=== PATIENT | male | born 1960 | race Caucasian/White ===

== ENCOUNTER 2018-02-20 01:07 | Inpatient (IN) | payer OTHER ==
[~2018-02-20] VITALS: Ht 179.1 cm; Wt 98.8 kg
[~2018-02-20 01:07] MED LIST: AMOX875T PO
--- NOTE | 2018-02-20 01:21 | EMERGENCY ROOM VISIT NOTE ---
History Report prepared by Cathleen: Jose Giron Under the Supervision of: Dr. Misti Craig D.O. First contact with patient: 01:10 Stated Complaint: HIP PAIN History of Present Illness The patient is a 57 year old male who presents to the Emergency Room with complaints of worsening left hip pain beginning 11 hours ago. The patient states he was riding his furnace combustion analyst this afternoon when he rolled it. He reports he was on a hill and started to slide down it. The patient notes he turned the blades off, pushed in the clutch and the break, and then he pressed the break again. He states he rolled the tractor a few times and then landed on his left shoulder. The patient reports he was able to get up, flip the tractor over, and ambulate the 90 yards to the house. He notes he sat down and had a hard time getting up. The patient states he now has left hip pain, left shoulder tenderness, and difficulty ambulating. He also notes movement increases his discomfort. He reports he had mild trouble getting into the ambulance and had to use the stair chair. The patient notes he was able to urinate afterwards. He denies LOC, nausea, right hip pain, back pain, abdominal pain, chest pain, and trouble breathing. The patient notes a history of HTN and DM. He states he should take an aspirin, but he does not. Source of History: patient Onset: 11 hours ago Position: other (left hip) Timing: worsening Modifying Factors (Worsening): movement Associated Symptoms: No LOC, No chest pain, No SOB, No nausea, No back pain Note: Associated symptoms: left shoulder pain, difficulty ambulating Denies: trouble breathing, right hip pain Review of Systems See HPI for pertinent positives & negatives. A total of 10 systems reviewed and were otherwise negative. Past Medical & Surgical Medical Problems: (1) Diabetes (2) HTN (hypertension) Family History Patient reports no known family medical history. Social History Marital Status: Housing Status: lives with family Occupation Status: employed Current/Historical Medications Scheduled Amoxicillin & Pot Clavulanate (Augmentin 875-125 mg), 1 TAB PO Q12 Atenolol (Tenormin), 50 MG PO DAILY Atorvastatin (Lipitor), 10 MG PO DAILY Glimepiride (Glimepiride), 1 TAB PO DAILY Lisinopril (Zestril), 40 MG PO DAILY Metformin Hcl (Glucophage), 1,000 MG PO BID Allergies Coded Allergies: No Known Allergies (Unverified , 02/20/18) Physical Exam Vital Signs Date Time Temp Pulse Resp B/P (MAP) Pulse Ox O2 Delivery O2 Flow Rate FiO2 02/20/18 06:37 84 18 135/80 96 Room Air 02/20/18 05:07 95 22 95 Room Air 02/20/18 05:00 145/87 02/20/18 04:07 99 29 93 02/20/18 04:00 145/82 02/20/18 03:07 99 27 93 02/20/18 03:00 152/80 02/20/18 02:43 161/80 02/20/18 02:07 98 25 92 02/20/18 01:32 70 18 123/57 95 Room Air 02/20/18 01:14 108 02/20/18 01:09 184/94 Physical Exam HEENT: Head - normocephalic and atraumatic. Pupils are equal, round, and reactive to light. Extraocular eye muscles are intact and sclera are anicteric. Ears - bilaterally patent canals with no evidence of hemotympanum. Nose - moist nasal mucosa without evidence of trauma or discharge. Mouth - moist buccal mucosa with no trauma to the teeth or signs of malocclusion. Neck: The neck is supple and there is no pain to palpation over the posterior cervical spine and no obvious step-offs or deformities. There is no JVD or tracheal deviation. Chest: There are no signs of deformities, contusions or abrasions to the chest wall. There is no obvious crepitus or paradoxical chest rise. Heart: Regular, rate, and rhythm. There is a normal S1 and S2 with no murmurs, clicks, or gallops appreciated. Lungs: Clear to auscultation bilaterally with no wheezes, rales, or rhonchi. Abdomen: Soft, completely nontender, nondistended, with good bowel sounds. There is no sign of trauma such as contusions, abrasions or penetrations. There are no palpable pulsatile masses or hepatosplenomegaly. There is no guarding, rigidity, or rebound noted. Pelvis: There is pain with movement of the left hemipelvis and pain to palpation of the left hip. Extremities: There is a LLE large hematoma to the left mid-calf in the tibia/ fibula area. There are easily palpable peripheral pulses. Neuro: The patient is awake and alert and easily able to follow commands. Muscle strength is 5 out of 5 in all 4 extremities. Otherwise, neuro exam is unremarkable. Back: The entire thoracic, lumbar, and sacral spine were palpated. There are no obvious step-offs or deformities noted. There are no obvious signs of trauma such as contusions abrasions penetrations noted to the back. Medical Decision & Procedures ER Provider Diagnostic Interpretation: Radiology results as stated below per my review: LEFT TIB/FIB X-RAY: No obvious fracture identified. Radiology results as stated below per my review and the radiologist's interpretation: CT ABDOMEN & PELVIS With Contrast: Cholelithiasis without cholecystitis. No biliary dilatation. Nonenhancing cysts in both kidneys are benign. Normal appendix. No bowel wall thickening or obstruction. No acute fracture or subluxation of the hip and pelvic bones. Radiologist: Karyn Radford MD Study ready at 02:49 and initial results transmitted at 03:19 Laboratory Results 02/20/18 01:30 02/20/18 01:30 Test 02/20/18 01:30 02/20/18 03:27 Red Blood Count 4.22 M/uL (4.7-6.1) Mean Corpuscular Volume 94.3 fL (80-100) Mean Corpuscular Hemoglobin 32.2 pg (25-34) Mean Corpuscular Hemoglobin Concent 34.2 g/dl (32-36) RDW Standard Deviation 41.2 fL (36.4-46.3) RDW Coefficient of Variation 12.2 % (11.5-14.5) Mean Platelet Volume 10.9 fL (7.4-10.4) Prothrombin Time 10.7 SECONDS (9.0-12.0) Prothromb Time International Ratio 1.0 (0.9-1.1) Anion Gap 11.0 mmol/L (3-11) Est Creatinine Clear Calc Drug Dose 97.2 ml/min Estimated GFR () 97.1 Estimated GFR (Non- 83.8 BUN/Creatinine Ratio 16.4 (10-20) Calcium Level 8.7 mg/dl (8.5-10.1) Chemistry Specimen Hemolysis Hepatitis C Antibody Screen NEG (NEG) Urine Color YELLOW Urine Appearance CLEAR (CLEAR) Urine pH 5.0 (4.5-7.5) Urine Specific [place] 1.035 (1.000-1.030) Urine Protein NEG (NEG) Urine Glucose (UA) 3+ (NEG) Urine Ketones 1+ (NEG) Urine Occult Blood NEG (NEG) Urine Nitrite NEG (NEG) Urine Bilirubin NEG (NEG) Urine Urobilinogen NEG (NEG) Urine Leukocyte Esterase NEG (NEG) Laboratory results per my review. Medications Administered Medications (Trade) Dose Ordered Sig/[place] Route Start Time Stop Time Status Last Admin Dose Admin Oxycodone/ Acetaminophen (Percocet 5-325mg Tab) 2 tab NOW ONCE PO 02/20/18 05:00 02/20/18 05:01 DC 02/20/18 05:02 2 TAB Ketorolac Tromethamine (Toradol Inj) 30 mg NOW STAT IV 02/20/18 05:31 02/20/18 05:32 DC 02/20/18 05:39 30 MG Procedure Medications Ordered: Oxycodone. IV Toradol ED Course 0112: The patient was evaluated in room B01. A complete history and trauma physical examination were performed. Nursing notes and previous electronic medical records were reviewed. IV lock was established and labs were drawn as above. 0117: The patient was moved to room B08. He declined wanting anything for pain. 0143: The patient is going to CT and x-ray. 0450: I checked on the patient. I reviewed the results of the x-ray and CT scan with the patient and his who is now at the bedside he is still having a lot of pain. We will order pain meds and ambulatory trial. 0500: Ordered Oxycodone 2 tablets PO. 0526: The patient did not perform well on ambulatory trial. He did not walk well due to left hip pain. I will order Toradol. 0612: We attempted ambulation again with a walker and were unsuccessful. The patient has exquisite discomfort with flexion of his left hip. The patient cannot go home. I will page for the [facility] Hospitalist. 0651: I [facility] the [facility] will evaluate for further treatment. Medical Decision The patient is a 57 year old male who presents to the Emergency Department with left leg pain. Differential diagnosis includes hip fracture, tib/fib fracture, and pelvic fracture. This is a 57-year-old male patient who rolled his riding lawnmower over backwards earlier today. His vital signs have remained stable throughout the day but he presents the emergency department tonight with severe left hip pain and difficulty walking. CT scan of the abdomen/pelvis revealed no evidence of an acute pelvic fracture or left hip fracture. We did an x-ray of the left tib- fib region because of significant ecchymosis and edema. There is no fracture noted there either. However, the patient has severe pain in the left hip and left hemipelvis when he attempts to ambulate or move. Despite having multiple doses of analgesia, the patient's pain persisted. I discussed the case with the [facility] and they will evaluate him for further management of his intractable pain. Head Trauma GCS Score: 15 Medication Reconcilliation Current Medication List: was personally reviewed by me Blood Pressure Screening Patient's blood pressure: Normal blood pressure Blood pressure disposition: Did not require urgent referral Consults Time Called: 06 Consulting Physician: Dr. Cyn Valle. Returned Call: [phone] I discussed the case with Dr. Cyn Valle. He will evaluate for further treatment. Impression Primary Impression: Accident caused by farm tractor Additional Impression: Left hip pain Scribe Attestation The scribe's documentation has been prepared under my direction and personally reviewed by me in its entirety. I confirm that the note above accurately reflects all work, treatment, procedures, and medical decision making performed by me. Departure Information Dispostion Being Evaluated By Hospitalist Problem Qualifiers Primary Impression: Accident caused by farm tractor Encounter type: initial encounter Qualified Codes: W30.9XXA - Contact with unspecified agricultural machinery, initial encounter
[2018-02-20 01:39] LABS: HEMATOCRIT 39.8 % (42-52); HEMOGLOBIN 13.6 g/dL (14.0-18.0); MEAN CELL VOLUME 94.3 fL (80-100); MEAN CORPUSCULAR HEMOGLOBIN 32.2 pg (25-34); MEAN CORPUSCULAR HGB CONC 34.2 g/dl (32-36); MEAN PLATELET VOLUME 10.9 fL (7.4-10.4); PLATELET COUNT 252 K/uL (130-400); RED CELL DISTRIBUTION WIDTH CV 12.2 % (11.5-14.5); RED CELL DISTRIBUTION WIDTH SD 41.2 fL (36.4-46.3); WHITE BLOOD COUNT 16.72 K/uL (4.8-10.8)
[2018-02-20] MEDS ORDERED: OPTIRAY 320 IV PRN (01:45)
[2018-02-20 02:00] LABS: CALCIUM 8.7 mg/dl (8.5-10.1); POTASSIUM 4.1 mmol/L (3.5-5.1)
[2018-02-20] MEDS ORDERED: GLIM2TAB2 PO (02:55)
[2018-02-20] MEDS ORDERED: ATEN50TA8 PO (02:55)
[2018-02-20] MEDS ORDERED: LISI40TA PO (02:56)
[2018-02-20] MEDS ORDERED: ATOR10TA82 PO (02:56)
[2018-02-20] MEDS ORDERED: METF1000 PO (02:56)
[2018-02-20] MEDS ORDERED: OXYCODONE/ACETAMINOPHEN 5-325 TAB PO ONE (05:00)
[2018-02-20] MEDS ORDERED: KETOROLAC TROMETHAMINE 30 MG/ML VIAL IV STA (05:31)
--- NOTE | 2018-02-20 06:28 | DIAGNOSTIC IMAGING REPORT ---
L TIBIA/FIBULA 2 VIEWS ROUTINE HISTORY: 57 years-old Male eval for fx. Acute left lower leg pain and swelling with bruising COMPARISON: None available TECHNIQUE: 2 views of the left tibia and fibula FINDINGS: Mild degenerative changes about the knee and tibiotalar joint. Spurring about the tibial tuberosity. Fracture or dislocation. Moderate soft tissue swelling about the lower leg including within the pretibial tissues. No opaque foreign body. IMPRESSION: Moderate soft tissue swelling without acute fracture, dislocation or opaque foreign body. The above report was generated using voice recognition software. It may contain grammatical, syntax or spelling errors. Electronically signed by: Danyel Gilmore M.D. 02/20/2018 6:26 AM Dictated Date/Time: 02/20/2018 6:24 AM
--- NOTE | 2018-02-20 06:41 | DIAGNOSTIC IMAGING REPORT ---
ABDOMEN AND PELVIS CT WITH IV CONTRAST CT DOSE: 750.15 mGy.cm HISTORY: Acute pelvic and left hip pain status post trauma eval for pelvic fx or left hip fx TECHNIQUE: Multiaxial CT images of the abdomen and pelvis were performed following the use of intravenous contrast. A dose lowering technique was utilized adhering to the principles of ALARA. COMPARISON STUDY: None. FINDINGS: Mild subsegmental bibasilar atelectasis. No pneumatosis or pneumoperitoneum. Imaged inferior cardiac chambers are unremarkable with coronary arterial calcifications partially imaged. Cholelithiasis without CT evidence of acute cholecystitis. No choledocholithiasis or intrahepatic biliary ductal dilation identified. Spleen is enlarged, 15.2 cm. Patent portal vein. Pancreas and adrenal glands are unremarkable. There are a few hypodense lesions about the bilateral kidneys measuring up to 1.7 cm within the superior pole left kidney compatible with renal cysts. No renal calculi or obstructive uropathy. Moderate bladder dilation. Phleboliths about the pelvis. Moderate calcification of the aorta without aneurysm. The IVC appears unremarkable. There are no pathologically enlarged lymph nodes identified. No bowel obstruction or focal bowel wall thickening. Small duodenal diverticulum. Mild colonic diverticulosis without acute diverticulitis. Terminal ileum and appendix appear normal. No ascites or mesenteric inflammatory changes. Small fat filled periumbilical hernia, diastases 1.3 cm. The soft tissues are unremarkable. Bones appear to be intact. Multilevel spondylitic spurring of the spine. Indeterminate round 5 mm lucency about the left pedicle of L3 without definite aggressive features identified. No acute pelvic fracture identified. The imaged left hip appears normal and is intact. IMPRESSION: 1. No acute intra-abdominal or intrapelvic abnormality identified. 2. No acute fracture. 3. Colonic diverticulosis without diverticulitis. 4. Cholelithiasis without CT evidence of acute cholecystitis. 5. Mild splenomegaly. Electronically signed by: Danyel Gilmore M.D. 02/20/2018 6:40 AM Dictated Date/Time: 02/20/2018 6:30 AM
[2018-02-20] MEDS ORDERED: ACETAMINOPHEN 325 MG TAB PO PRN (07:30)
[2018-02-20] MEDS ORDERED: MAGNESIUM HYDROXIDE SUSP 30 ML UDC PO PRN (07:30)
[2018-02-20] MEDS ORDERED: ONDANSETRON INJ 2 MG/ML 2 ML VIAL IV PRN (07:30)
[2018-02-20] MEDS ORDERED: POLYETHYLENE (MIRALAX) 17 GM PACK PO PRN (07:30)
[2018-02-20] MEDS ORDERED: ALUMINUM/MAGNESIUM/SIMETH (MAALOX MAX) 30 ML UDC PO PRN (07:30)
--- NOTE | 2018-02-20 07:40 | History and Physical ---
History & Physical Date & Time of Service: Feb 20, 2018 at 07:40 Chief Complaint: Hip Pain Primary Care Physician: No Doctor, Assigned History of Present Illness Source: patient This is a 57-year-old male with past medical history of hypertension hyperlipidemia,Type 2 DM Presented to the ER-after traumatic injury to his left leg as riding economic historian fell on him Patient was mowing his backyard with a riding lawnmower, as the mower on top of hill , started to slide back , pt turned off the blades , pushed on brake , the economic historian tripped and fell on top of him pt did not lost consciousness was injured mostly on left side managed to lift the economic historian up , walked back 90 -100 ft to home started to have severe pain and swelling on left lower leg with significant bruise applied ice did not had any fever or chills had left shoulder and left abdominal pain , which got better could not bear wt on left lower leg came to ER after several hrs as pain became unbearable Patient denies of dizziness spell lightheadedness, chest pain or discomfort prior or after the fall In the ER CT of lower extremity shows hematoma on left lower extremity, no fracture Past Medical/Surgical History Medical Problems: (1) Diabetes (2) HTN (hypertension) Family History Patient reports no known family medical history. Social History Smoking Status: Never Smoker Marital Status: Occupational Status: employed Allergies Coded Allergies: No Known Allergies (Unverified , 02/20/18) Home Medications Scheduled Amoxicillin & Pot Clavulanate (Augmentin 875-125 mg), 1 TAB PO Q12 Atenolol (Tenormin), 50 MG PO DAILY Atorvastatin (Lipitor), 10 MG PO DAILY Glimepiride (Glimepiride), 1 TAB PO DAILY Lisinopril (Zestril), 40 MG PO DAILY Metformin Hcl (Glucophage), 1,000 MG PO BID Scheduled PRN Oxycodone/Acetaminophen 5MG/325MG (Percocet 5MG/325MG), 1 TAB PO Q6 PRN for Pain Review of Systems Constitutional: No fever, No chills, No sweats, No weight loss, No weakness, No fatigue, No problem reported Eyes: No worsening of vision, No eye pain, No redness, No discharge, No diplopia, No problem reported ENT: No hearing loss, No unusual epistaxis, No nasal symptoms, No sore throat, No tinnitus, No dental problems, No trouble swallowing, No problem reported Respiratory: No cough, No sputum, No wheezing, No shortness of breath, No dyspnea on exertion, No dyspnea at rest, No hemoptysis, No problem reported Cardiovascular: No chest pain, No orthopnea, No PND, No edema, No claudication , No palpitations, No problem reported Musculoskeletal: + problem reported (Left lower extremity swelling, ecchymosis , + tenderness) Neurologic: No memory loss, No paralysis, No weakness, No numbness/tingling, No vertigo, No balance problems, No problem reported Endocrine: No fatigue, No excessive thirst, No excessive urination, No problem reported Physical Exam Vital Signs Date Time Temp Pulse Resp B/P (MAP) Pulse Ox O2 Delivery O2 Flow Rate FiO2 02/20/18 06:37 84 18 135/80 96 Room Air 02/20/18 05:07 95 22 95 Room Air 02/20/18 05:00 145/87 02/20/18 04:07 99 29 93 02/20/18 04:00 145/82 02/20/18 03:07 99 27 93 02/20/18 03:00 152/80 02/20/18 02:43 161/80 02/20/18 02:07 98 25 92 02/20/18 01:32 70 18 123/57 95 Room Air 02/20/18 01:14 108 02/20/18 01:09 184/94 General Appearance: no apparent distress Head: normocephalic, atraumatic Eyes: normal inspection, PERRL, EOMI, sclerae normal ENT: hearing grossly normal Neck: supple, no adenopathy, thyroid normal, no JVD Respiratory/Chest: chest non-tender, lungs clear, normal breath sounds, no respiratory distress, no accessory muscle use Cardiovascular: regular rate, rhythm, no edema Abdomen/GI: normal bowel sounds, non tender, soft Extremities/Musculoskelatal: + pertinent finding (left lower ext + hematoma , eccymosis , swelling, + tenderness, no skin breakdown ) Neurologic/Psych: alert, normal mood/affect, normal reflexes Lymphatic: no adenopathy Diagnostics Laboratory Results Results Past 24 Hours Test 02/20/18 01:30 02/20/18 03:27 02/20/18 07:28 Range/Units White Blood Count 16.72 4.8-10.8 K/uL Red Blood Count 4.22 4.7-6.1 M/uL Hemoglobin 13.6 14.0-18.0 g/dL Hematocrit 39.8 42-52 % Mean Corpuscular Volume 94.3 80-100 fL Mean Corpuscular Hemoglobin 32.2 25-34 pg Mean Corpuscular Hemoglobin Concent 34.2 32-36 g/dl RDW Standard Deviation 41.2 36.4-46.3 fL RDW Coefficient of Variation 12.2 11.5-14.5 % Platelet Count 252 130-400 K/uL Mean Platelet Volume 10.9 7.4-10.4 fL Sodium Level 134 136-145 mmol/L Potassium Level 4.1 3.5-5.1 mmol/L Chloride Level 98 98-107 mmol/L Carbon Dioxide Level 25 21-32 mmol/L Anion Gap 11.0 3-11 mmol/L Blood Urea Nitrogen 16 7-18 mg/dl Creatinine 1.00 0.60-1.40 mg/dl Est Creatinine Clear Calc Drug Dose 97.2 ml/min Estimated GFR () 97.1 Estimated GFR (Non- 83.8 BUN/Creatinine Ratio 16.4 10-20 Random Glucose 234 70-99 mg/dl Calcium Level 8.7 8.5-10.1 mg/dl Chemistry Specimen Hemolysis Urine Color YELLOW Urine Appearance CLEAR CLEAR Urine pH 5.0 4.5-7.5 Urine Specific [place] 1.035 1.000-1.030 Urine Protein NEG NEG Urine Glucose (UA) 3+ NEG Urine Ketones 1+ NEG Urine Occult Blood NEG NEG Urine Nitrite NEG NEG Urine Bilirubin NEG NEG Urine Urobilinogen NEG NEG Urine Leukocyte Esterase NEG NEG Diagnostic Radiology CT ABDOMEN/PELVIS : IMPRESSION: 1. No acute intra-abdominal or intrapelvic abnormality identified. 2. No acute fracture. 3. Colonic diverticulosis without diverticulitis. 4. Cholelithiasis without CT evidence of acute cholecystitis. 5. Mild splenomegaly. L TIBIA/FIBULA 2 VIEWS ROUTINE HISTORY: 57 years-old Male eval for fx. Acute left lower leg pain and swelling with bruising COMPARISON: None available TECHNIQUE: 2 views of the left tibia and fibula FINDINGS: Mild degenerative changes about the knee and tibiotalar joint. Spurring about the tibial tuberosity. Fracture or dislocation. Moderate soft tissue swelling about the lower leg including within the pretibial tissues. No opaque foreign body. IMPRESSION: Moderate soft tissue swelling without acute fracture, dislocation or opaque foreign body. Impression Assessment and Plan ACUTE LEFT LOWER EXTREMITY PAIN WITH SWELLING AND BRUISING Status post traumatic injury with rider economic historian Developed left lower extremity hematoma/after direct impact CT abdomen pelvis shows no intra-abdominal injury Lower extremity x-ray shows -no evidence of fracture -Moderate soft tissue swelling Pain control Offloading of left lower extremity, PT OT eval orthopedics consulted HYPERTENSION Blood pressure stable, continue atenolol HYPERLIPIDEMIA On statin TYPE 2 DIABETES Hold oral hypoglycemics Insulin sliding scale CODE STATUS: Full code DVT prophylaxis: SCD and teds, ambulate Pharmacological anticoagulation avoided For left lower extremity hematoma/ traumatic INJURY DISPOSITION PT OT evaluation Expected to be discharged home when medically stable Resuscitation Status FULL RESUSCITATION VTE Prophylaxis Risk Level: Moderate Given or contraindicated: T.E.D. Stockings, SCD's
[2018-02-20] MEDS ORDERED: GLUCAGON FOR INJ 1 MG VIAL SQ PRN (07:45)
[2018-02-20] MEDS ORDERED: CARBOHYDRATES FOR HYPOGLYCEMIA PO PRN (07:45)
[2018-02-20] MEDS ORDERED: GLUCOSE 40% GEL 15 GM TUBE PO PRN (07:45)
[2018-02-20] MEDS ORDERED: OXYCODONE/ACETAMINOPHEN 5-325 TAB PO PRN (07:45)
[2018-02-20] MEDS ORDERED: HYDROmorphone INJ 1 MG/ML SYR IV PRN (07:45)
[2018-02-20] MEDS ORDERED: HYDROmorphone INJ 2 MG/ML SYR/VIAL IV PRN (07:45)
[2018-02-20] MEDS ORDERED: GLUCOSE 10 TABS/TUBE PO PRN (07:45)
[2018-02-20] MEDS ORDERED: DEXTROSE 50% 50 ML SYR IV PRN (07:45)
[2018-02-20 08:07] VITALS: BP 139/92; TEMP 36.9; Ht 179.1 cm; Wt 98.8 kg
[2018-02-20] MEDS ORDERED: ATORVASTATIN 10 MG TAB PO SCH (09:00)
[2018-02-20 09:17] VITALS: BP 166/97; PULSE 78; TEMP 36.7; O2SAT 98
[2018-02-20] MEDS: DOCUSATE SODIUM 100 MG CAP PO SCH ×2 (09:59→20:54)
[2018-02-20] MEDS: LISINOPRIL 40 MG TAB PO SCH (10:00)
[2018-02-20] MEDS: SODIUM CHLORIDE 0.9% 1000ML 1,000 ML IV SCH ×2 (10:01→19:41)
[2018-02-20] MEDS: INSULIN ASPART 100 UNITS/ML 3 ML PEN SC SCH ×4 (10:03→20:59)
--- NOTE | 2018-02-20 10:54 | Orthopedic Consultation ---
Orthopedic Consultation Date of Consultation: Feb 20, 2018. Attending Physician: Marycruz Patterson M.D. Reason for Consultation: Left hip pain and left tibia pain History of Present Illness The patient is a 57-year-old male who yesterday was driving a lawnmower tractor. He was going up a hill and 1 of the we will started to spin out. He disengaged the blade and then disengaged clutch and he started to slide back. The tractor then flipped over landing onto him. He was able to get out from underneath the tractor and was able to flip retracted back over. He is then able to ambulate back to his home which is a distance of about 90-100 yards. He initially had pain in the left hip as well as left tibia but was able ambulate. He rested at home and had increasing pain and inability to bear weight on the leg and presented to the emergency room. He states now the pain is better after the Toradol but still has pain he locates to the left hip. Past Medical/Surgical History Medical Problems: (1) Accident caused by farm tractor Status: Acute (2) Left hip pain Status: Acute Family History Patient reports no known family medical history. Social History Smoking Status: Never Smoker Marital Status: Housing Status: lives with family Occupation Status: employed Allergies Coded Allergies: No Known Allergies (Unverified , 02/20/18) Home Medications Scheduled Amoxicillin & Pot Clavulanate (Augmentin 875-125 mg), 1 TAB PO Q12 Atenolol (Tenormin), 50 MG PO DAILY Atorvastatin (Lipitor), 10 MG PO DAILY Glimepiride (Glimepiride), 1 TAB PO DAILY Lisinopril (Zestril), 40 MG PO DAILY Metformin Hcl (Glucophage), 1,000 MG PO BID Current Inpatient Medications Current Inpatient Medications Medications (Trade) Dose Ordered Sig/Valencia Route Start Time Stop Time Status Last Admin Dose Admin Ioversol (Optiray 320) 100 ml UD PRN IV 02/20/18 01:45 02/24/18 01:44 Acetaminophen (Tylenol Tab) 650 mg Q4H PRN PO 02/20/18 07:30 03/22/18 07:29 Al Hydrox/Mg Hydrox/Simethicone (Maalox Max Susp) 15 ml Q4H PRN PO 02/20/18 07:30 03/22/18 07:29 Magnesium Hydroxide (Milk Of Magnesia Susp) 30 ml Q6H PRN PO 02/20/18 07:30 03/22/18 07:29 Polyethylene (Miralax Powder Packet) 17 gm DAILY PRN PO 02/20/18 07:30 03/22/18 07:29 Ondansetron HCl (Zofran Inj) 4 mg Q6H PRN IV 02/20/18 07:30 03/22/18 07:29 Sodium Chloride 1,000 ml @ 100 mls/hr Q10H IV 02/20/18 09:15 03/22/18 07:44 02/20/18 10:01 100 MLS/HR Atenolol (Tenormin Tab) 50 mg DAILY PO 02/20/18 09:00 03/22/18 08:59 02/20/18 10:00 50 MG Lisinopril (Zestril Tab) 40 mg DAILY PO 02/20/18 09:00 03/22/18 08:59 02/20/18 10:00 40 MG Hydromorphone HCl (Dilaudid Inj) 1 mg Q4 PRN IV 02/20/18 07:45 03/06/18 07:44 Hydromorphone HCl (Dilaudid Inj) 2 mg Q4 PRN IV 02/20/18 07:45 03/06/18 07:44 Oxycodone/ Acetaminophen (Percocet 5-325mg Tab) 1 tab Q6 PRN PO 02/20/18 07:45 03/06/18 07:44 Docusate Sodium (coLACE CAP) 100 mg BID PO 02/20/18 09:00 03/22/18 08:59 02/20/18 09:59 100 MG Insulin Aspart (novoLOG ASPART) SLIDING SCALE If C... ACHS SC 02/20/18 12:00 03/22/18 11:59 02/20/18 10:03 9 UNITS Glucose (Glucose 40% Gel) 15-30 GRAMS 15 GRAMS... UD PRN PO 02/20/18 07:45 03/22/18 07:44 Glucose (Glucose Chew Tab) 4-8 Tablets 4 Tabl... UD PRN PO 02/20/18 07:45 03/22/18 07:44 Dextrose (Dextrose 50% 50ML Syringe) 25-50ML 25ML FOR ... UD PRN IV 02/20/18 07:45 03/22/18 07:44 Glucagon (Glucagon Inj) 1 mg UD PRN SQ 02/20/18 07:45 03/22/18 07:44 Carbohydrates (Carbohydrates For Hypoglycemia) 15-30 GRAMS 15 grams if BSG 54-69... UD PRN PO 02/20/18 07:45 03/22/18 07:44 Ketorolac Tromethamine (Toradol Inj) 15 mg Q8 PRN IV 02/20/18 08:30 02/25/18 08:29 Review of Systems Constitutional: No fever Eyes: No worsening of vision Physical Exam Date Time Temp Pulse Resp B/P (MAP) Pulse Ox O2 Delivery O2 Flow Rate FiO2 02/20/18 09:17 36.7 78 18 166/97 (120) 98 Room Air 02/20/18 08:45 79 18 127/72 94 Room Air 02/20/18 08:07 36.9 18 139/92 Room Air 02/20/18 07:52 36.9 82 18 139/92 92 Room Air 02/20/18 06:37 84 18 135/80 96 Room Air 02/20/18 05:07 95 22 95 Room Air 02/20/18 05:00 145/87 02/20/18 04:07 99 29 93 02/20/18 04:00 145/82 02/20/18 03:07 99 27 93 02/20/18 03:00 152/80 02/20/18 02:43 161/80 02/20/18 02:07 98 25 92 02/20/18 01:32 70 18 123/57 95 Room Air 02/20/18 01:14 108 02/20/18 01:09 184/94 Left lower extremity: There is bruising as well as a small hematoma on the anterior medial aspect the left tibia. No open wounds. Skin is intact. No pain to the calf. He is able to freely move the calf foot and toes without any difficulty without any pain. Compartments are soft and compressible. He has no significant pain to axial load of the left hip. Is mild tenderness palpation over the iliac wing as well as greater trochanter. He has some pain with internal and external rotation of the hip they locates at times to the groin as well as at times posteriorly to the hip. General Appearance: WD/WN Head: normocephalic, atraumatic Eyes: normal inspection ENT: normal ENT inspection Neck: supple Respiratory/Chest: chest non-tender Cardiovascular: regular rate, rhythm Abdomen/GI: soft Laboratory Results Last 24 Hours Test 02/20/18 01:30 02/20/18 03:27 02/20/18 09:43 White Blood Count 16.72 K/uL Red Blood Count 4.22 M/uL Hemoglobin 13.6 g/dL Hematocrit 39.8 % Mean Corpuscular Volume 94.3 fL Mean Corpuscular Hemoglobin 32.2 pg Mean Corpuscular Hemoglobin Concent 34.2 g/dl RDW Standard Deviation 41.2 fL RDW Coefficient of Variation 12.2 % Platelet Count 252 K/uL Mean Platelet Volume 10.9 fL Prothrombin Time 10.7 SECONDS Prothromb Time International Ratio 1.0 Sodium Level 134 mmol/L Potassium Level 4.1 mmol/L Chloride Level 98 mmol/L Carbon Dioxide Level 25 mmol/L Anion Gap 11.0 mmol/L Blood Urea Nitrogen 16 mg/dl Creatinine 1.00 mg/dl Est Creatinine Clear Calc Drug Dose 97.2 ml/min Estimated GFR () 97.1 Estimated GFR (Non- 83.8 BUN/Creatinine Ratio 16.4 Random Glucose 234 mg/dl Calcium Level 8.7 mg/dl Chemistry Specimen Hemolysis Hepatitis C Antibody Screen NEG Urine Color YELLOW Urine Appearance CLEAR Urine pH 5.0 Urine Specific Kila 1.035 Urine Protein NEG Urine Glucose (UA) 3+ Urine Ketones 1+ Urine Occult Blood NEG Urine Nitrite NEG Urine Bilirubin NEG Urine Urobilinogen NEG Urine Leukocyte Esterase NEG Bedside Glucose 231 mg/dl Assessment & Plan Left hip contusion left anterior medial tibia hematoma He has had x-rays of the tib-fib which are negative for fracture. CAT scan of the pelvis is negative for fracture. The fact that he is able to ambulate immediately after the injury as well as able to flip retracted back over also space the fact he likely does not have any fracture. The hematoma on the tibia I do not think require any intervention. Discussed within the resolve over time but may take a while. He may develop some calcification in this region after the hematoma. Pain is hip appears to be improving with anti- inflammatories. Again I do not see any fractures are seen need for further intervention. I will treat him symptomatically with pain control and having some mobilizing with physical therapy. He can be weightbearing as tolerated. Follow-up as needed.
[2018-02-20] MEDS: KETOROLAC TROMETHAMINE 15 MG/ML VIAL IV PRN ×2 (12:49→20:31)
[2018-02-20] MEDS ORDERED: AMOXICILLIN/CLAVULANATE TAB 875 MG TAB PO ONE (15:00)
[2018-02-20 15:14] VITALS: BP 164/83; PULSE 76; TEMP 36.7; O2SAT 97
[2018-02-20] MEDS: OXYCODONE/ACETAMINOPHEN 5-325 TAB PO PRN (15:27)
[2018-02-20] MEDS: AMOXICILLIN/CLAVULANATE TAB 875 MG TAB PO SCH (20:54)
[2018-02-20 23:23] VITALS: BP 155/82; PULSE 74; TEMP 36.7; O2SAT 90
[2018-02-21] MEDS: KETOROLAC TROMETHAMINE 15 MG/ML VIAL IV PRN ×2 (03:25→12:09)
[2018-02-21] MEDS: SODIUM CHLORIDE 0.9% 1000ML 1,000 ML IV SCH ×3 (05:45→23:53)
[2018-02-21 06:45] LABS: HEMATOCRIT 34.4 % (42-52); HEMOGLOBIN 11.3 g/dL (14.0-18.0); MEAN CELL VOLUME 95.3 fL (80-100); MEAN CORPUSCULAR HEMOGLOBIN 31.3 pg (25-34); MEAN CORPUSCULAR HGB CONC 32.8 g/dl (32-36); MEAN PLATELET VOLUME 10.8 fL (7.4-10.4); PLATELET COUNT 198 K/uL (130-400); RED CELL DISTRIBUTION WIDTH CV 12.1 % (11.5-14.5); RED CELL DISTRIBUTION WIDTH SD 41.1 fL (36.4-46.3); WHITE BLOOD COUNT 11.53 K/uL (4.8-10.8)
[2018-02-21 06:46] VITALS: BP 160/81; PULSE 87; TEMP 36.9; O2SAT 92
[2018-02-21 06:52] LABS: HEMOGLOBIN A1C 6.6 % (4.5-5.6)
[2018-02-21 07:21] LABS: CREATININE 0.79 mg/dl (0.60-1.40); POTASSIUM 4.6 mmol/L (3.5-5.1)
[2018-02-21 07:30] VITALS: O2SAT 93
[2018-02-21] MEDS: OXYCODONE/ACETAMINOPHEN 5-325 TAB PO PRN ×3 (07:31→23:00)
[2018-02-21] MEDS: INSULIN ASPART 100 UNITS/ML 3 ML PEN SC SCH ×4 (07:35→20:55)
[2018-02-21 07:59] VITALS: BP 120/62; PULSE 88; TEMP 36.8; O2SAT 93
[2018-02-21] MEDS: AMOXICILLIN/CLAVULANATE TAB 875 MG TAB PO SCH ×2 (08:11→18:03)
[2018-02-21] MEDS: DOCUSATE SODIUM 100 MG CAP PO SCH ×2 (08:11→20:53)
[2018-02-21] MEDS: LISINOPRIL 40 MG TAB PO SCH (08:28)
[2018-02-21 09:10] VITALS: O2SAT 93
[2018-02-21] MEDS ORDERED: OXYC-57 PO (14:47)
--- NOTE | 2018-02-21 14:50 | Discharge Instructions ---
Discharge Instructions Date of Service Feb 21, 2018. Admission Reason for Admission: L Hip Pain Discharge Goals Goal(s): Decrease discomfort, Improve function, Increase independence, Improve disease control, Diagnostic testing Activity Recommendations . Current Hospital Diet Patient's current hospital diet: Diabetes Type 2 Diet, AHA Diet (Heart Healthy) Laboratory Results Hemoglobin A1c Test 02/21/18 06:19 Range/Units Estimated Average Glucose 143 mg/dl Hemoglobin A1c 6.6 H 4.5-5.6 % Medical Emergencies . Who to Call and When: Medical Emergencies: If at any time you feel your situation is an emergency, please call 911 immediately. . Non-Emergent Contact . . "Provider Documentation" section prepared by Marycruz Patterson. .
[2018-02-21 15:12] VITALS: BP 157/81; PULSE 76; TEMP 36.4; O2SAT 98
--- NOTE | 2018-02-21 19:51 | Progress Note ---
Internal Med Progress Note Date of Service: Feb 21, 2018. Provider Documentation: SUBJECTIVE: Lids left lower extremity throbbing pain improved Was able to bear weight using a walker earlier today, Patient remains afebrile, no chills or regular, denies of any shortness of breath palpitation or dizzy spell OBJECTIVE: Vital Signs-as noted below Exam: General-no sign of distress Eyes-sclera nonicteric, pupils bilateral equal reactive light extraocular muscle intact ENT-moist oral mucosa Neck-supple, no carotid bruit, thyromegaly Lungs-clear to auscultate, no wheeze or rales Heart-regular S1 and S2 Abdomen-soft nontender, no organomegaly, bowel sounds active Extremities-left lower extremity: hematoma/swelling in the mid leg, no overlying skin breakdown Normal exam of right lower extremity Neuro-alert awake oriented 2, no focal neurological deficit Lab data as noted below. 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 Developed left lower extremity hematoma/after direct impact CT abdomen pelvis shows no intra-abdominal injury Lower extremity x-ray shows -no evidence of fracture -Moderate soft tissue swelling Appreciate input from orthopedics, Conservative management with weightbearing as tolerated, PT OT, pain control HYPERTENSION Blood pressure stable, continue atenolol lisinopril, HYPERLIPIDEMIA On statin TYPE 2 DIABETES Hold oral hypoglycemics Insulin sliding scale Metformin, glyburide be resumed on discharge CODE STATUS: Full code DVT prophylaxis: SCD and teds, ambulate Pharmacological anticoagulation avoided For left lower extremity hematoma/ traumatic INJURY DISPOSITION PT OT evaluation Patient still having significant pain on left lower extremity, Possible discharge home tomorrow Vital Signs: Date Time Temp Pulse Resp B/P (MAP) Pulse Ox O2 Delivery O2 Flow Rate FiO2 02/21/18 23:30 Room Air 02/21/18 23:03 37.3 78 20 170/90 (116) 99 02/21/18 15:25 Room Air 02/21/18 15:12 36.4 76 18 157/81 (106) 98 Room Air 02/21/18 09:10 93 Room Air 02/21/18 07:59 36.8 88 20 120/62 (81) 93 Room Air 02/21/18 07:30 93 Room Air 02/21/18 06:46 36.9 87 16 160/81 (107) 92 Room Air Lab Results: Results Past 24 Hours Test 02/21/18 06:19 02/21/18 06:24 02/21/18 12:04 02/21/18 17:03 Range/Units White Blood Count 11.53 4.8-10.8 K/uL Red Blood Count 3.61 4.7-6.1 M/uL Hemoglobin 11.3 14.0-18.0 g/dL Hematocrit 34.4 42-52 % Mean Corpuscular Volume 95.3 80-100 fL Mean Corpuscular Hemoglobin 31.3 25-34 pg Mean Corpuscular Hemoglobin Concent 32.8 32-36 g/dl RDW Standard Deviation 41.1 36.4-46.3 fL RDW Coefficient of Variation 12.1 11.5-14.5 % Platelet Count 198 130-400 K/uL Mean Platelet Volume 10.8 7.4-10.4 fL Sodium Level 139 136-145 mmol/L Potassium Level 4.6 3.5-5.1 mmol/L Chloride Level 104 98-107 mmol/L Carbon Dioxide Level 26 21-32 mmol/L Anion Gap 9.0 3-11 mmol/L Blood Urea Nitrogen 13 7-18 mg/dl Creatinine 0.79 0.60-1.40 mg/dl Est Creatinine Clear Calc Drug Dose 124.1 ml/min Estimated GFR () 116.3 Estimated GFR (Non- 100.4 BUN/Creatinine Ratio 16.8 10-20 Random Glucose 163 70-99 mg/dl Estimated Average Glucose 143 mg/dl Hemoglobin A1c 6.6 4.5-5.6 % Calcium Level 8.0 8.5-10.1 mg/dl Bedside Glucose 171 194 190 70-99 mg/dl Test 02/21/18 20:45 Range/Units Bedside Glucose 216 70-99 mg/dl
[2018-02-21 23:03] VITALS: BP 170/90; PULSE 78; TEMP 37.3; O2SAT 99
[2018-02-22 05:15] VITALS: BP 157/83
[2018-02-22 05:56] LABS: HEMATOCRIT 32.2 % (42-52); HEMOGLOBIN 10.4 g/dL (14.0-18.0); MEAN CORPUSCULAR HEMOGLOBIN 31.3 pg (25-34); MEAN CORPUSCULAR HGB CONC 32.3 g/dl (32-36); MEAN PLATELET VOLUME 10.8 fL (7.4-10.4); PLATELET COUNT 192 K/uL (130-400); RED CELL DISTRIBUTION WIDTH CV 12.6 % (11.5-14.5); RED CELL DISTRIBUTION WIDTH SD 44.2 fL (36.4-46.3); WHITE BLOOD COUNT 8.21 K/uL (4.8-10.8)
[2018-02-22 06:26] LABS: CALCIUM 7.6 mg/dl (8.5-10.1); CREATININE 0.77 mg/dl (0.60-1.40); POTASSIUM 4.5 mmol/L (3.5-5.1)
[2018-02-22 07:18] VITALS: BP 167/84; PULSE 76; TEMP 37; O2SAT 93
[2018-02-22] MEDS: OXYCODONE/ACETAMINOPHEN 5-325 TAB PO PRN (07:29)
[2018-02-22] MEDS: INSULIN ASPART 100 UNITS/ML 3 ML PEN SC SCH ×2 (08:47→13:03)
[2018-02-22] MEDS: LISINOPRIL 40 MG TAB PO SCH (08:50)
[2018-02-22] MEDS: AMOXICILLIN/CLAVULANATE TAB 875 MG TAB PO SCH (08:51)
[2018-02-22] MEDS: DOCUSATE SODIUM 100 MG CAP PO SCH (08:51)
[2018-02-22] MEDS: SODIUM CHLORIDE 0.9% 1000ML 1,000 ML IV SCH (09:42)
[2018-02-22 11:10] VITALS: BP 150/82; PULSE 69; PULSE 76; TEMP 37; O2SAT 93
[2018-02-22 11:42] VITALS: BP 150/82
--- NOTE | 2018-02-22 11:50 | Progress Note ---
Medicine Progress Note Date & Time of Visit: Feb 22, 2018 at 11:50 . Subjective Left leg feels better. Pain improved. Able to ambulate with walker. No CP or SOB. . Objective Last 8 Hrs Date Time Temp Pulse Resp B/P (MAP) Pulse Ox O2 Delivery O2 Flow Rate FiO2 02/22/18 11:42 150/82 (104) 02/22/18 11:10 37.0 69 15 93 Room Air 02/22/18 07:20 Room Air 02/22/18 07:18 37.0 76 15 167/84 (111) 93 Room Air 02/22/18 05:15 157/83 (107) Physical Exam: General- no distress Lungs- clear to auscultation; no respiratory distress Cardiovascular- RRR; no JVD; no pretibial edema Abdomen- + bowel sounds, soft, nontender Extremities- no cyanosis; no calf tenderness; left pretibial hematoma; capillary refill left toes < 1 sec; wearing TEDS Neuro- alert, oriented Skin- warm & dry . Laboratory Results: Last 24 Hours Test 02/21/18 12:04 02/21/18 17:03 02/21/18 20:45 02/22/18 05:20 Bedside Glucose 194 mg/dl 190 mg/dl 216 mg/dl White Blood Count 8.21 K/uL Red Blood Count 3.32 M/uL Hemoglobin 10.4 g/dL Hematocrit 32.2 % Mean Corpuscular Volume 97.0 fL Mean Corpuscular Hemoglobin 31.3 pg Mean Corpuscular Hemoglobin Concent 32.3 g/dl RDW Standard Deviation 44.2 fL RDW Coefficient of Variation 12.6 % Platelet Count 192 K/uL Mean Platelet Volume 10.8 fL Sodium Level 139 mmol/L Potassium Level 4.5 mmol/L Chloride Level 106 mmol/L Carbon Dioxide Level 26 mmol/L Anion Gap 7.0 mmol/L Blood Urea Nitrogen 13 mg/dl Creatinine 0.77 mg/dl Est Creatinine Clear Calc Drug Dose 127.3 ml/min Estimated GFR () 117.6 Estimated GFR (Non- 101.4 BUN/Creatinine Ratio 16.4 Random Glucose 162 mg/dl Calcium Level 7.6 mg/dl Test 02/22/18 08:09 Bedside Glucose 180 mg/dl Assessment & Plan LEFT PRETIBIAL HEMATOMA Orthopedics consulted. No evidence of fracture per plain films. PT consulted. Ambulating with walker. Continue analgesics. HYPERTENSION Continue atenolol and lisinopril. DM TYPE 2 Hgb A1C 6.6. Oral agents held during hospital stay. Received insulin coverage as needed. Resume metformin and glimepiride upon discharge. RECENT SINUSITIS Finish course of amoxicillin / clavulanic acid. VTE PROPHYLAXIS No anticoagulants due to pretibial hematoma. SCD's. Ambulating. DISPOSITION Expected discharge to home. Internal Medicine follow-up with Dr. Reece. . Current Inpatient Medications: Current Inpatient Medications Medications (Trade) Dose Ordered Sig/Valencia Route Start Time Stop Time Status Last Admin Dose Admin Ioversol (Optiray 320) 100 ml UD PRN IV 02/20/18 01:45 02/24/18 01:44 Acetaminophen (Tylenol Tab) 650 mg Q4H PRN PO 02/20/18 07:30 03/22/18 07:29 Al Hydrox/Mg Hydrox/Simethicone (Maalox Max Susp) 15 ml Q4H PRN PO 02/20/18 07:30 03/22/18 07:29 Magnesium Hydroxide (Milk Of Magnesia Susp) 30 ml Q6H PRN PO 02/20/18 07:30 03/22/18 07:29 Polyethylene (Miralax Powder Packet) 17 gm DAILY PRN PO 02/20/18 07:30 03/22/18 07:29 Ondansetron HCl (Zofran Inj) 4 mg Q6H PRN IV 02/20/18 07:30 03/22/18 07:29 Sodium Chloride 1,000 ml @ 100 mls/hr Q10H IV 02/20/18 09:15 03/22/18 07:44 02/22/18 09:42 100 MLS/HR Atenolol (Tenormin Tab) 50 mg DAILY PO 02/20/18 09:00 03/22/18 08:59 02/22/18 08:50 50 MG Lisinopril (Zestril Tab) 40 mg DAILY PO 02/20/18 09:00 03/22/18 08:59 02/22/18 08:50 40 MG Hydromorphone HCl (Dilaudid Inj) 1 mg Q4 PRN IV 02/20/18 07:45 03/06/18 07:44 Hydromorphone HCl (Dilaudid Inj) 2 mg Q4 PRN IV 02/20/18 07:45 03/06/18 07:44 Oxycodone/ Acetaminophen (Percocet 5-325mg Tab) 1 tab Q6 PRN PO 02/20/18 07:45 03/06/18 07:44 02/22/18 07:29 1 TAB Docusate Sodium (coLACE CAP) 100 mg BID PO 02/20/18 09:00 03/22/18 08:59 02/22/18 08:51 100 MG Insulin Aspart (novoLOG ASPART) SLIDING SCALE If C... ACHS SC 02/20/18 12:00 03/22/18 11:59 02/22/18 08:47 7 UNITS Glucose (Glucose 40% Gel) 15-30 GRAMS 15 GRAMS... UD PRN PO 02/20/18 07:45 03/22/18 07:44 Glucose (Glucose Chew Tab) 4-8 Tablets 4 Tabl... UD PRN PO 02/20/18 07:45 03/22/18 07:44 Dextrose (Dextrose 50% 50ML Syringe) 25-50ML 25ML FOR ... UD PRN IV 02/20/18 07:45 03/22/18 07:44 Glucagon (Glucagon Inj) 1 mg UD PRN SQ 02/20/18 07:45 03/22/18 07:44 Carbohydrates (Carbohydrates For Hypoglycemia) 15-30 GRAMS 15 grams if BSG 54-69... UD PRN PO 02/20/18 07:45 03/22/18 07:44 Ketorolac Tromethamine (Toradol Inj) 15 mg Q8 PRN IV 02/20/18 08:30 02/25/18 08:29 02/21/18 12:09 15 MG Amoxicillin/ Clavulanate Potassium (Augmentin Tab) 875 mg BIDM PO 02/20/18 21:00 02/27/18 20:59 02/22/18 08:51 875 MG
[2018-02-22] MEDS ORDERED: MTR800 PO (12:29)
[2018-02-22] MEDS ORDERED: ASPI1TAB83 PO (12:35)
[2018-02-22] MEDS ORDERED: AMLO2.5T PO (12:35)
--- NOTE | 2018-02-22 12:39 | Discharge Instructions ---
Discharge Instructions Date of Service Feb 22, 2018. Admission Reason for Admission: injury left leg . Discharge Discharge Diagnosis / Problem: bruise / hematoma left leg Discharge Goals Goal(s): Decrease discomfort, Improve function Activity Recommendations Activity Limitations: as noted below Lifting Limitations: gradually increase as tolerated (use walker as necessary) . Instructions / Follow-Up Instructions / Follow-Up APPOINTMENTS: INTERNAL MEDICINE 02/25/2018 3:20 PM Laina Reece, Internal Medicine [facility] OTHER INSTRUCTIONS: Wear support stockings most of the time until swelling improved. Keep your left leg elevated when able. Seek medical attention if you have: * temperature above 101 * chest pain or trouble breathing * abdominal pain, nausea, vomiting * diarrhea, dark stools or bloody stools * any unanswered questions or concerns Call 911 if symptoms are severe. Call if you have any questions or problems. My cell # is [phone]. You can also reach a [facility] hospitalist on duty at [facility] 24 hours a day by calling [phone]. Please take good care of yourself. Turner Baca . Current Hospital Diet Patient's current hospital diet: Diabetes Type 2 Diet, AHA Diet (Heart Healthy) Discharge Diet Recommended Diet: AHA Diet (Heart Healthy), Diabetes Type 2 Diet Pending Studies Studies pending at discharge: no Laboratory Results Hemoglobin A1c Test 02/21/18 06:19 Range/Units Estimated Average Glucose 143 mg/dl Hemoglobin A1c 6.6 H 4.5-5.6 % Work Instructions Return To Work: after follow-up Additional Instructions: Chester Paige has been absent from work since 02/20/18 because of illness. Return to work date to be determined after recheck. Medical Emergencies . Who to Call and When: Medical Emergencies: If at any time you feel your situation is an emergency, please call 911 immediately. . Non-Emergent Contact Non-Emergency issues call your: Primary Care Provider, Hospital Doctor . . "Provider Documentation" section prepared by Turner Baca. . [place] Drug Monitoring [place] Search Results: patient reviewed within database, no issues identified
[2018-02-22] MEDS ORDERED: OXYC-643 PO (13:54)
--- NOTE | 2018-02-23 07:06 | Discharge Summary ---
Discharge Summary Date of Service Feb 23, 2018. Discharge Summary Admission Date: Feb 20, 2018 at 07:27 Discharge Date: Feb 21, 2018 Discharge Disposition: Home Principal Diagnosis: left pretibial hematoma . Secondary Diagnoses/Problems: hypertension DM type 2 cholelithiasis . Procedures: CT abdomen / pelvis PT . Consultations: Orthopedics . Medication Reconciliation New Medications: Ibuprofen (Ibuprofen) 800 Mg Tab 800 MG PO QID PRN for Pain, #20 TAB 1 Refill Take with food. Oxycodone/Acetaminophen 5MG/325MG (Oxycodone/Acetaminophen 5MG/325MG) 1 Tab Tab 1 TABLET PO Q6H PRN for severe pain, #10 TAB Continued Medications: Amlodipine (Norvasc) 2.5 Mg Tab 2.5 MG PO DAILY, TAB Amoxicillin & Pot Clavulanate (Augmentin 875-125 mg) 1 Tab Tab 1 TAB PO Q12 for 10 Days Aspirin (Aspirin) 81 Mg Tab 81 MG PO DAILY, TAB Atenolol (Tenormin) 50 Mg Tab 50 MG PO DAILY, TAB Atorvastatin (Lipitor) 10 Mg Tab 10 MG PO DAILY, TAB Glimepiride (Glimepiride) 2 Mg Tab 2 MG PO DAILY, TAB 3 Refills Lisinopril (Zestril) 40 Mg Tab 40 MG PO DAILY, TAB Metformin Hcl (Glucophage) 1,000 Mg Tab 1000 MG PO BID, TAB Admission Information HPI (per Admitting provider): This is a 57-year-old male with past medical history of hypertension hyperlipidemia,Type 2 DM Presented to the ER-after traumatic injury to his left leg as riding inside finisher fell on him Patient was mowing his backyard with a riding lawnmower, as the mower on top of hill , started to slide back , pt turned off the blades , pushed on brake , the inside finisher tripped and fell on top of him pt did not lost consciousness was injured mostly on left side managed to lift the inside finisher up , walked back 90 -100 ft to home started to have severe pain and swelling on left lower leg with significant bruise applied ice did not had any fever or chills had left shoulder and left abdominal pain , which got better could not bear wt on left lower leg came to ER after several hrs as pain became unbearable Patient denies of dizziness spell lightheadedness, chest pain or discomfort prior or after the fall In the ER CT of lower extremity shows hematoma on left lower extremity, no fracture . Physical Exam (per Admitting): General Appearance: no apparent distress Head: normocephalic, atraumatic Eyes: normal inspection, PERRL, EOMI, sclerae normal ENT: hearing grossly normal Neck: supple, no adenopathy, thyroid normal, no JVD Respiratory/Chest: chest non-tender, lungs clear, normal breath sounds, no respiratory distress, no accessory muscle use Cardiovascular: regular rate, rhythm, no edema Abdomen/GI: normal bowel sounds, non tender, soft Extremities/Musculoskelatal: + pertinent finding (left lower ext + hematoma , eccymosis , swelling, + tenderness, no skin breakdown ) Neurologic/Psych: alert, normal mood/affect, normal reflexes Lymphatic: no adenopathy Hospital Course LEFT PRETIBIAL HEMATOMA Orthopedics consulted. No evidence of fracture per plain films. PT consulted. Ambulating with walker. Continue analgesics. PELVIC / HIP PAIN No evidence of fracture, hematoma, or other traumatic injuries per CT. HYPERTENSION Continue atenolol and lisinopril. DM TYPE 2 Hgb A1C 6.6. Oral agents held during hospital stay. Received insulin coverage as needed. Resume metformin and glimepiride upon discharge. RECENT SINUSITIS Finish course of amoxicillin / clavulanic acid. VTE PROPHYLAXIS No anticoagulants due to pretibial hematoma. SCD's. Ambulating. DISPOSITION Expected discharge to home. Internal Medicine follow-up with Dr. Reece. . Discharge Instructions Discharge Instructions Date of Service Feb 22, 2018. Admission Reason for Admission: injury left leg . Discharge Discharge Diagnosis / Problem: bruise / hematoma left leg Discharge Goals Goal(s): Decrease discomfort, Improve function Activity Recommendations Activity Limitations: as noted below Lifting Limitations: gradually increase as tolerated (use walker as necessary) . Instructions / Follow-Up Instructions / Follow-Up APPOINTMENTS: INTERNAL MEDICINE 02/25/2018 3:20 PM Laina Reece, Internal Medicine [facility] OTHER INSTRUCTIONS: Wear support stockings most of the time until swelling improved. Keep your left leg elevated when able. Seek medical attention if you have: * temperature above 101 * chest pain or trouble breathing * abdominal pain, nausea, vomiting * diarrhea, dark stools or bloody stools * any unanswered questions or concerns Call 911 if symptoms are severe. Call if you have any questions or problems. My cell # is [phone]. You can also reach a [facility] hospitalist on duty at [facility] 24 hours a day by calling [phone]. Please take good care of yourself. Turner Baca . Current Hospital Diet Patient's current hospital diet: Diabetes Type 2 Diet, AHA Diet (Heart Healthy) Discharge Diet Recommended Diet: AHA Diet (Heart Healthy), Diabetes Type 2 Diet Pending Studies Studies pending at discharge: no Laboratory Results Hemoglobin A1c Test 02/21/18 06:19 Range/Units Estimated Average Glucose 143 mg/dl Hemoglobin A1c 6.6 H 4.5-5.6 % Work Instructions Return To Work: after follow-up Additional Instructions: Chester Paige has been absent from work since 02/20/18 because of illness. Return to work date to be determined after recheck. Medical Emergencies . Who to Call and When: Medical Emergencies: If at any time you feel your situation is an emergency, please call 911 immediately. . Non-Emergent Contact Non-Emergency issues call your: Primary Care Provider, Hospital Doctor . . "Provider Documentation" section prepared by Turner Baca. . [place] Drug Monitoring [place] Search Results: patient reviewed within database, no issues identified . Additional Copies To Laina Reece D.O.
== END 2018-02-22 14:55 | disposition home or self-care (01) | DRG 605 ==
LOC: C.EDB 01:11 → C.MSW 07:27 → EDBEDREQSVC 07:51 → ENRESERV 08:03
PROVIDERS: ADMIT Hospitalist; ATTEND Hospitalist
DX: S70.02XA Contusion of left hip, initial encounter (principal); S80.12XA Contusion of left lower leg, initial encounter; T14.8XXA Other injury of unspecified body region, initial encounter; R26.2 Difficulty in walking, not elsewhere classified; K80.20 Calculus of gallbladder without cholecystitis without obstruction; I10 Essential (primary) hypertension; E11.9 Type 2 diabetes mellitus without complications; E78.5 Hyperlipidemia, unspecified; Z79.899 Other long term (current) drug therapy; Z79.84 Long term (current) use of oral hypoglycemic drugs; Z87.09 Personal history of other diseases of the respiratory system; W28.XXXA Contact with powered lawn mower, initial encounter; Y93.H9 Activity, other involving exterior property and land maintenance, building and construction; Y92.017 Garden or yard in single-family (private) house as the place of occurrence of the external cause; Y99.8 Other external cause status